=== PATIENT | female | born 1970 | race African-American/Black ===

== ENCOUNTER 2017-06-29 08:29 | Outpatient (CLI) | payer MEDICARE, MEDICAID ==
[2017-06-29] MEDS ORDERED: IRON DEXTRAN COMPLEX 1,000 MG in NORMAL SALINE 1000 ML 1,000 ML IV PRN (08:47)
[2017-06-29] MEDS ORDERED: ACETAMINOPHEN 325 MG TABLET PO PRN ×2 (08:49→09:00)
[2017-06-29] MEDS ORDERED: DIPHENHYDRAMINE HCL 25 MG CAPSULE PO PRN (08:50)
[2017-06-29] MEDS: NORMAL SALINE 250 ML IV PRN ×2 (08:57→09:38)
[2017-06-29] MEDS ORDERED: IRON DEXTRAN COMPLEX IV PRN (09:12)
[2017-06-29] MEDS ORDERED: NORMAL SALINE IV PRN (09:12)
[2017-06-29] MEDS ORDERED: IRON DEXTRAN COMPLEX 975 MG in NORMAL SALINE 1000 ML 1,000 ML IV PRN (09:15)
[2017-06-29 09:28] VITALS: BP 166/83
== END 2017-06-29 13:54 | disposition home or self-care (01) ==
LOC: II 08:29 → 5TH 08:29 → II 13:54
PROVIDERS: ATTEND Internal Medicine Hematology & Oncology
PROC: 3E033GC Introduction of Other Therapeutic Substance into Peripheral Vein, Percutaneous Approach (ICD-10-PCS; principal; 2017-06-29)
DX: D50.9 Iron deficiency anemia, unspecified (principal)
CPT/HCPCS: 96365; 96366; 96375; A9270 ×2; J1750; J7030; 96367